=== PATIENT | female | born 1940 | race Hispanic/Latino ===

== ENCOUNTER 2023-09-26 06:01 | Day surgery (SDC) | payer OTHER ==
[2023-09-23 15:36] VITALS: BP 166/65; PULSE 61; RESP 16
[2023-09-23 15:56] LABS: BASOPHILS # (AUTO) 0.04 K/uL (0.00-0.20); BASOPHILS % (AUTO) 0.7 % (0.0-5.0); EOSINOPHILS # (AUTO) 0.36 K/uL (0.00-0.70); HEMATOCRIT 37.8 % (36-48); IMMATURE GRANULOCYTE ABSOLUTE 0.01 K/uL (0-1); LYMPHOCYTES # (AUTO) 1.5 K/uL (1.0-4.8); LYMPHOCYTES % (AUTO) 24.8 % (21.0-51.0); MEAN CORPUSCULAR HEMOGLOBIN 30.4 pg (27.0-33.0); MEAN CORPUSCULAR HGB CONC 33.6 g/dL (32.0-36.0); MEAN CORPUSCULAR VOLUME 90.4 fL (79-99); MONOCYTES # (AUTO) 0.4 K/uL (0.1-1.0); MONOCYTES % (AUTO) 6.5 % (3.0-13.0); NEUTROPHILS # (AUTO) 3.7 K/uL (1.8-7.7); NEUTROPHILS % (AUTO) 61.8 % (40.0-77.0); PLATELET COUNT (AUTO) 247 K/uL (130-400); RED BLOOD CELL COUNT(AUTO) 4.18 MIL/uL (4.00-5.50)
[2023-09-23 16:03] LABS: CREATININE 1.3 mg/dL (0.5-1.5); POTASSIUM 3.8 mmol/L (3.5-5.1)
[2023-09-23 16:06] LABS: INR 0.94 (0.85-1.15); PROTHROMBIN TIME 10.9 SEC (9.6-11.6)
[2023-09-23 16:08] LABS: PARTIAL THROMBOPLASTIN TIME 30.4 SEC (26.3-35.5)
[~2023-09-26] VITALS: Ht 152.4 cm; Wt 62.8 kg
[2023-09-26] VITALS (17 sets, daily range): BP systolic 105–136; BP diastolic 53–63; PULSE 47–54; RESP 14–17
[~2023-09-26 06:01] MED LIST: AMLO-257 PO; APIX2.5T PO; ATOR40TA69 PO; BRIM5DRO21 OP; FURO20TA4 PO; HYDR-4153 PO; LATA2.5D14 OP; LEVO50TA11 PO; LISI1TAB49 PO
[2023-09-26] MEDS ORDERED: LACTATED RINGERS 1000ML 1,000 ML IV ONE (06:27)
[2023-09-26] MEDS ORDERED: LIDOCAINE 1%-EPI 1:100,000 20 ML VIAL IJ ONE (07:10)
[2023-09-26] MEDS ORDERED: MINERAL OIL 30 ML UDCUP ONE (07:10)
[2023-09-26] MEDS ORDERED: BACITRACIN 28.4 GM OINT TP ONE (07:12)
[2023-09-26] MEDS ORDERED: DEXAMETHASONE SOD PHOSPHATE 10MG/ML 1ML VIAL ONE (07:36)
[2023-09-26] MEDS ORDERED: LIDOCAINE PF 100MG/5ML (2%) SYRINGE 5ML ONE (07:36)
[2023-09-26] MEDS ORDERED: PROPOFOL 10 MG/ML 20ML VIAL IV ONE (07:37)
[2023-09-26] MEDS ORDERED: MIDAZOLAM HCL 1 MG/ML 2ML VIAL ONE (07:38)
[2023-09-26] MEDS ORDERED: GLYCOPYRROLATE 1 MG/5 ML SYRINGE ONE (08:02)
[2023-09-26] MEDS ORDERED: EPHEDRINE SULFATE 50 MG/ML AMPULE ONE (09:01)
== END 2023-09-26 11:10 | disposition home or self-care (01) ==
LOC: DAH 06:01
PROVIDERS: ATTEND Otolaryngology Plastic Surgery within the Head & Neck
DX: C44.212 Basal cell carcinoma of skin of right ear and external auricular canal (principal); I10 Essential (primary) hypertension; E78.5 Hyperlipidemia, unspecified; E03.9 Hypothyroidism, unspecified; I63.9 Cerebral infarction, unspecified; Z83.3 Family history of diabetes mellitus; Z79.899 Other long term (current) drug therapy; Z79.890 Hormone replacement therapy
CPT/HCPCS: 80048; 85025; 85610; 85730; 36415; 11643; 15260; 88305; A6260; A4663; A4606; J7120; J3490 ×3; J1100; J2001; J2250; J2704; A6223; A4649 ×2; A4930; A4215; A4223; A4222; A4221